=== PATIENT | female | born 1970 | race African-American/Black ===

== ENCOUNTER 2022-09-07 20:15 | Observation (INO) | payer BC, SELFPAY ==
[2022-09-07 20:40] VITALS: BP 109/72; PULSE 71; RESP 20; TEMP 37.1; O2SAT 100; BMI 34.3
--- NOTE | 2022-09-07 21:09 | CT_ITS ---
[address] [address] Patient Name: YOSI KLEIN MRN: [id number] date: 1970 Sex: F Assigned Patient Location: ED.MAIN Current Patient Location: Accession/Order Number: [id number] Exam Date: 09/07/2022 22:00 Report Date: 09/07/2022 22:56 At the request of: FEDE MARKER Procedure: CT abdomen pelvis w con EXAM: CT abdomen pelvis w con TECHNIQUE: Axial CT images were obtained of the abdomen and pelvis with intravenous contrast. Sagittal and coronal reformatted images were also obtained. Dose reduction techniques were achieved by using automated exposure control and/or adjustment of mA and/or kV according to patient size and/or use of iterative reconstruction technique. HISTORY: abd pain COMPARISON: None. FINDINGS: Lower chest: The lower lungs are clear. Liver: The liver is homogeneous with normal contours and normal size. Gallbladder: The gallbladder is unremarkable. There is no intra or extrahepatic biliary dilatation. Pancreas: The pancreas is homogeneous without evidence for mass lesion or inflammation. Spleen: The spleen is unremarkable without evidence for mass lesion. Adrenal glands: The adrenal glands are unremarkable Kidneys and bladder: The kidneys are unremarkable with no evidence for mass lesion, hydronephrosis or inflammation. The ureters demonstrate normal caliber. The urinary bladder is unremarkable. GI Tract: Stomach is unremarkable. Visualized small bowel is unremarkable without evidence for obstruction or active inflammation. Appendix is thickened with mild periappendiceal inflammation. No periappendiceal abscess.The visualized portion of the large bowel is unremarkable. Reproductive: Intrauterine device in place. Lymph nodes: No retroperitoneal or abdominal lymphadenopathy. Vascular: The aorta is not dilated. Peritoneum: No free intraperitoneal air or fluid. No acute inflammation. Abdominal wall: Unremarkable without acute abnormality. IMPRESSION: Findings suggesting acute appendicitis. No evidence for abscess. Electronically authenticated by: MALINI ANGELO Date: 09/07/2022 22:56
--- NOTE | 2022-09-07 21:09 | ED_ITS ---
HPI - Abdominal Pain General Chief Complaint: Abdominal Pain Stated Complaint: ABDOMINAL PAIN, PAINFUL TO BREATH Time Seen by Provider: 09/07/22 20:43 Source: patient Mode of arrival: walk-in Limitations: no limitations History of Present Illness HPI narrative: This 51-year-old female presents for evaluation of right upper quadrant abdominal pain with excessive bloating, belching nausea and one episode of vomiting. The patient states the pain started yesterday but became worse after having a stuffed pepper for dinner last night. She states she was unable to get comfortable all night. She thought initially that she was constipated and had to have a bowel movement. She went to the bathroom and use the bathroom but the pain did not resolve. She states she has been trying to drink clear liquids today with everything that she eats or drinks upsets her stomach. She denies any chest pain. She states the pain in her abdomen is making it hard for her to take a deep breath. She has not had any diarrhea. She denies any excessive alcohol use. She does not smoke. She takes medications for an irregular heartbeat but otherwise is healthy. She has not had a fever or cough. Related Data Home Medications Medication Instructions Recorded Confirmed cetirizine 10 mg tablet (24Hour 10 mg PO DAILY PRN allergy symptoms 09/07/22 09/07/22 Allergy) metoprolol succinate 25 mg 25 mg PO DAILY 09/07/22 09/07/22 tablet,extended release 24 hr spironolactone 100 mg tablet 100 mg PO DAILY 09/07/22 09/07/22 Allergies Allergy/AdvReac Type Severity Reaction Status Date / Time No Known Drug Allergies Allergy Verified 09/07/22 20:45 Review of Systems ROS Status of ROS 10 or more systems reviewed and unremarkable except as noted in history and below [facility] Medical History (Updated 09/08/22 @ 00:38 by Faye Asencio MD) Social History Smoking status: Never smoker Exam Narrative Exam Narrative: Constitutional: Nontoxic but uncomfortable appearing -[place] female, she cries out at times due to spasms in her abdomen, no respiratory distress Vital signs: Afebrile with a normal pulse, blood pressure is normal 109/72, she is not hypoxic with pulse ox of 100 percent on room air HEENT: Normocephalic/atraumatic, patient is nonicteric, mucous membranes are moist and pink Neck: Supple, no meningeal signs Chest: Lungs are clear with good air entry, no wheezing rhonchi or rales appreciated Abdomen: Softly distended, normal bowel sounds, tenderness in the right upper and right lower quadrants with voluntary guarding, +Rovsings sign, no pulsatile masses. Ext: non-tender, no calf swelling or tenderness noted, non-tender varicose veins noted in posterior calfs bilaterally Neuro- no focal deficits Psych- normal exam, anxious due to current condition Constitutional Vital Signs - 24 hr 09/07/22 20:40 Temperature 98.8 F Pulse Rate [Monitor] 71 Respiratory Rate 20 Blood Pressure [Left Arm] 109/72 Pulse Oximetry 100 Oxygen Delivery Method Room Air Course Vital Signs Vital signs: Vital Signs Temperature 98.8 F 09/07/22 20:40 Pulse Rate 71 09/07/22 20:40 Respiratory Rate 20 09/07/22 20:40 Blood Pressure 109/72 09/07/22 20:40 Pulse Oximetry 100 09/07/22 20:40 Oxygen Delivery Method Room Air 09/07/22 20:40 Temperature 98.8 F 09/07/22 20:40 Pulse Rate 71 09/07/22 20:40 Respiratory Rate 20 09/07/22 20:40 Blood Pressure 109/72 09/07/22 20:40 Pulse Oximetry 100 09/07/22 20:40 Oxygen Delivery Method Room Air 09/07/22 20:40 MDM - Abdominal Pain MDM Narrative Medical decision making narrative: This 51-year-old female who takes metoprolol and spironolactone allegedly for an irregular heartbeat at times presents for evaluation of abdominal pain with nausea and vomiting. The pain started last night. The patient states she could not get comfortable at all. She did not really have much of an appetite during the day but bought a slushie that she thought would settle her stomach. She states that her stomach was diffusely tender and put into the right side. She had not had a fever. She had some vomiting. She was unable to get comfortable. She did admit to passing a lot of gas and a lot of belching. She has not had a fever. She denies any chest pain or shortness of breath. Due to her history of a cardiac arrhythmia I ordered an EKG that was a sinus rhythm at 59 bpm with no acute changes. An IV was placed and she was medicated with IV fluids, Toradol and Zofran. Her pain went from a 10 to a 5 with these medications. She had declined strong pain medications initially because she was hoping to be able to drive home. Routine labs are ordered and are reviewed. She has normal white count and hemoglobin. test was negative. Electrolytes, LFTs and lipase are all normal. CT scan abdomen and pelvis with contrast was ordered and shows Thickened appendix with periappendiceal inflammation consistent with acute appendicitis. It shows a normal gallbladder. The patient was informed of the results of the CT scan. She is in agreement with admission to this facility. The case was discussed with general surgery on-call, Dr. Dave and she is accepted for admission to med/surg. He requested IV Unasyn q 6 hours and the first dose was given in the ER. She was also re-medicated with 4mg IV morphine, NPO status was implemented and she was given maintenance IV fluids. Lab Data Labs: Lab Results 09/07/22 Range/Units 21:13 WBC 9.2 (4.0-11.0) 10^3/uL RBC 3.96 L (4.20-5.40) 10^6/uL Hgb 12.1 (12.0-16.0) g/dL Hct 35.7 L (36.0-48.0) % MCV 90.2 (81.0-99.0) fL MCH 30.6 (26.7-34.0) pg MCHC 33.9 (29.9-35.2) g/dL RDW 11.8 (11.0-15.0) % Plt Count 266 (150-450) 10^3/uL MPV 10.5 (9.5-13.5) fL Neut % (Auto) 56.9 (43.0-75.0) % Lymph % (Auto) 32.2 (20.5-60.0) % [place] % (Auto) 9.2 (1.7-12.0) % Eos % (Auto) 1.3 (0.9-7.0) % Baso % (Auto) 0.2 (0.2-2.0) % Neut # (Auto) 5.2 (1.4-6.5) 10^3/uL Lymph # (Auto) 3.0 (1.2-3.8) 10^3/uL [place] # (Auto) 0.8 (0.3-0.8) 10^3/uL Eos # (Auto) 0.1 (0.0-0.7) 10^3/uL Baso # (Auto) 0.0 (0.0-0.1) 10^3/uL Abs Immat Gran (auto) 0.02 (0.00-0.03) 10^3/uL Imm/Tot Granulo (auto) 0.2 (0.0-0.5) % Sodium 132 L (136-145) mmol/L Potassium 3.4 L (3.5-5.1) mmol/L Chloride 100 (98-107) mmol/L Carbon Dioxide 25.9 (21.0-32.0) mmol/L Anion Gap 9.5 BUN 5.0 L (7.0-18.0) mg/dL Creatinine 0.83 (0.55-1.02) mg/dL Est GFR ( Amer) >60 (>=60) Est GFR (Non-Af Amer) >60 (>=60) BUN/Creatinine Ratio 6.0 Glucose 94 (74-106) mg/dL Calcium 8.7 (8.5-10.1) mg/dL Total Bilirubin 0.8 (0.2-1.0) mg/dL AST 19 (15-37) U/L ALT 25 (14-59) U/L Alkaline Phosphatase 101 (46-116) U/L Total Protein 7.7 (6.4-8.2) g/dL Albumin 3.6 (3.4-5.0) g/dL Globulin 4.1 g/dL Albumin/Globulin Ratio 0.9 Lipase 70.0 L (73.0-393.0) U/L Discharge Plan Discharge Chief Complaint: Abdominal Pain Clinical Impression: Acute appendicitis Patient Disposition: Admitted as Observation Time of Disposition Decision: 00:38 Condition: Good Prescriptions / Home Meds: No Action metoprolol succinate 25 mg tablet extended release 24 hr 25 mg PO DAILY spironolactone 100 mg tablet 100 mg PO DAILY cetirizine [24Hour Allergy] 10 mg tablet 10 mg PO DAILY PRN (Reason: allergy symptoms) Referrals: Physician,Non-Staff, MD [Primary Care Provider] - 1 week
--- NOTE | 2022-09-07 21:12 | ECG_ITS ---
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
[2022-09-07 21:25] VITALS: PULSE 63; RESP 13
[2022-09-07 21:27] VITALS: PULSE 59
[2022-09-07 21:27] LABS: Basophils Percent Auto 0.2 % (0.2-2.0); Eosinophils Absolute Auto 0.1 10^3/uL (0.0-0.7); Eosinophils Percent Auto 1.3 % (0.9-7.0); Hematocrit 35.7 % (36.0-48.0); Hemoglobin 12.1 g/dL (12.0-16.0); Immature Granulocytes Abs Auto 0.02 10^3/uL (0.00-0.03); Immature Granulocytes Pct Auto 0.2 % (0.0-0.5); Lymphocytes Percent Auto 32.2 % (20.5-60.0); Mean Corpuscular HGB Conc 33.9 g/dL (29.9-35.2); Mean Corpuscular Hemoglobin 30.6 pg (26.7-34.0); Mean Corpuscular Volume 90.2 fL (81.0-99.0); Mean Platelet Volume 10.5 fL (9.5-13.5); Monocytes Absolute Auto 0.8 10^3/uL (0.3-0.8); Monocytes Percent Auto 9.2 % (1.7-12.0); Neutrophils Absolute Auto 5.2 10^3/uL (1.4-6.5); Neutrophils Percent Auto 56.9 % (43.0-75.0); Platelet Count 266 10^3/uL (150-450); Red Blood Count 3.96 10^6/uL (4.20-5.40); Red Cell Distribution Width 11.8 % (11.0-15.0); White Blood Count 9.2 10^3/uL (4.0-11.0)
[2022-09-07] MEDS: 0.9 % SODIUM CHLORIDE 1,000 ML 1000 ML IV (21:39)
[2022-09-07] MEDS: FAMOTIDINE/PF 20 MG/2 ML VIAL IV (21:39)
[2022-09-07] MEDS: KETOROLAC TROMETHAMINE 30 MG/ML VIAL IVP (21:39)
[2022-09-07] MEDS: ONDANSETRON PF 4 MG/2 ML VIAL IV (21:39)
[2022-09-07 21:42] LABS: Alanine Aminotransferase 25 U/L (14-59); Albumin Globulin Ratio 0.9; Albumin Level 3.6 g/dL (3.4-5.0); Alkaline Phosphatase 101 U/L (46-116); Anion Gap 9.5; Aspartate Amino Transferase 19 U/L (15-37); Bilirubin Total 0.8 mg/dL (0.2-1.0); Calcium 8.7 mg/dL (8.5-10.1); Carbon Dioxide 25.9 mmol/L (21.0-32.0); Chloride 100 mmol/L (98-107); Estimated GFR (African America >60 (>=60); Estimated GFR (Non-African Ame >60 (>=60); Globulin 4.1 g/dL; Glucose 94 mg/dL (74-106); Potassium 3.4 mmol/L (3.5-5.1); Sodium 132 mmol/L (136-145); Total Protein 7.7 g/dL (6.4-8.2)
[2022-09-07] MEDS: MORPHINE SULFATE 4 MG/ML VIAL IV (23:53)
[2022-09-07] MEDS: AMPICILLIN SODIUM/SULBACTAM NA 3 GM in 0.9 % SODIUM CHLORIDE 100 ML IV (23:53)
[2022-09-08] VITALS (63 sets, daily range): BP systolic 98–126; BP diastolic 61–83; PULSE 52–92; RESP 13–18; TEMP 36.1–36.7; O2SAT 94–100; BMI 37.5
[2022-09-08] MEDS: 0.9 % SODIUM CHLORIDE 1,000 ML 125 ML IV (01:30)
[2022-09-08 02:40] LABS: HCG Qualitative Urine* NEGATIVE (NEGATIVE)
[2022-09-08 05:21] LABS: Basophils Percent Auto 0.2 % (0.2-2.0); Eosinophils Absolute Auto 0.1 10^3/uL (0.0-0.7); Eosinophils Percent Auto 2.3 % (0.9-7.0); Hematocrit 29.4 % (36.0-48.0); Hemoglobin 10.1 g/dL (12.0-16.0); Immature Granulocytes Abs Auto 0.01 10^3/uL (0.00-0.03); Immature Granulocytes Pct Auto 0.2 % (0.0-0.5); Lymphocytes Absolute Auto 2.9 10^3/uL (1.2-3.8); Lymphocytes Percent Auto 48.8 % (20.5-60.0); Mean Corpuscular HGB Conc 34.4 g/dL (29.9-35.2); Mean Corpuscular Hemoglobin 30.6 pg (26.7-34.0); Mean Corpuscular Volume 89.1 fL (81.0-99.0); Mean Platelet Volume 10.9 fL (9.5-13.5); Monocytes Absolute Auto 0.6 10^3/uL (0.3-0.8); Neutrophils Absolute Auto 2.3 10^3/uL (1.4-6.5); Neutrophils Percent Auto 38.5 % (43.0-75.0); Platelet Count 211 10^3/uL (150-450); Red Cell Distribution Width 11.9 % (11.0-15.0)
--- NOTE | 2022-09-08 05:25 | P.HP_ITS ---
H&P: HPI History of Present Illness Chief complaint: SOB, PAINFUL TO BREATH Narrative: 51-year-old black female presented to the Emergency Department last evening with complaints of nausea and vomiting and right-sided abdominal pain worsening during the day. She denies any fevers or chills. She had a CAT scan of the abdomen and pelvis which showed periappendiceal inflammation compatible with probable appendicitis. She had been feeling well until the day before yesterday. Denies any melena hematochezia or any family history of colon cancer or inflammatory bowel disease. She has a history of an irregular heartbeat for which she sees the [facility] and takes metoprolol regularly. She rates her pain as a five out of ten currently. White blood count was normal. She works for [employer]. She is and has childdren out of state. Review of Systems ROS Status of ROS 10 or more systems reviewed and unremarkable except as noted in history and below [facility] Medical History Social History Smoking status: Never smoker Gender Identity: female Meds Home Medications and Allergies Home Medications Medication Instructions Recorded Confirmed Type cetirizine 10 mg tablet (24Hour 10 mg PO DAILY PRN allergy symptoms 09/07/22 09/08/22 History Allergy) metoprolol succinate 25 mg 25 mg PO DAILY 09/07/22 09/08/22 History tablet,extended release 24 hr spironolactone 100 mg tablet 100 mg PO DAILY 09/07/22 09/08/22 History Allergies Allergy/AdvReac Type Severity Reaction Status Date / Time No Known Drug Allergies Allergy Verified 09/07/22 20:45 Exam Constitutional Vital Signs - 24 hr 09/07/22 20:40 09/07/22 21:25 09/08/22 00:02 Temperature 98.8 F Pulse Rate 63 Pulse Rate [Monitor] 71 Respiratory Rate 20 13 Blood Pressure Blood Pressure [Left Arm] 109/72 Pulse Oximetry 100 99 Oxygen Delivery Method Room Air 09/08/22 00:04 09/08/22 00:05 09/08/22 02:24 Temperature Pulse Rate Pulse Rate [Monitor] Respiratory Rate 14 Blood Pressure 119/65 Blood Pressure [Left Arm] Pulse Oximetry 99 Oxygen Delivery Method 09/08/22 02:24 09/08/22 02:24 Temperature 97.6 F Pulse Rate 53 L Pulse Rate [Monitor] 53 L Respiratory Rate 16 16 Blood Pressure Blood Pressure [Left Arm] 107/64 Pulse Oximetry 95 95 Oxygen Delivery Method Room Air Room Air Documenting provider has reviewed patient's vital signs: yes Common normals: no apparent distress, average body habitus, oriented x3, healthy appearing, alert and well nourished General appearance: cooperative and well developed Nutritional appearance: obese Orientation/consciousness: Yes awake, Yes oriented to person, Yes oriented to place and Yes oriented to time HENMT Common normals: normocephalic Eye Common normals: PERRL and EOMs intact bilaterally General eye: normal appearance of both eyes Respiratory Common normals: clear to auscultation bilaterally Cardio Rate: bradycardic GI Common normals: Normal to inspection, nondistended, normoactive bowel sounds present and soft to palpation Palpation: tender Details: RLQ and McBurney's point and guarding in the RLQ Extremity Common normals: normal to inspection Neuro Common normals: oriented x3 and moves all extremities Psych Common normals: mental status grossly normal Results Labs Labs: Short CBC 09/07/22 Range/Units 21:13 WBC 9.2 (4.0-11.0) 10^3/uL Hgb 12.1 (12.0-16.0) g/dL Hct 35.7 L (36.0-48.0) % Plt Count 266 (150-450) 10^3/uL BMP 09/07/22 21:13 Sodium 132 L Potassium 3.4 L Chloride 100 Carbon Dioxide 25.9 BUN 5.0 L Creatinine 0.83 Glucose 94 Calcium 8.7 Liver Function 09/07/22 Range/Units 21:13 Total Bilirubin 0.8 (0.2-1.0) mg/dL AST 19 (15-37) U/L ALT 25 (14-59) U/L Alkaline Phosphatase 101 (46-116) U/L Albumin 3.6 (3.4-5.0) g/dL Assessment and Plan Assessment and Plan (1) Acute appendicitis: Qualifiers: Acute appendicitis type: with localized peritonitis (2) Palpitations: (3) Thyroid nodule: Plan laparoscopic appendectomy with possible open appendectomy. Risks benefits and alternatives to surgery may include infection, bleeding, postoperative abscess weeks later, blood clots to like to lungs, pneumonia, heart attack, stroke, and/or . Patient understands all the above and wishes to proceed. This is an emergency.
[2022-09-08] MEDS: AMPICILLIN SODIUM/SULBACTAM NA 3 GM in 0.9 % SODIUM CHLORIDE 100 ML IV (06:40)
--- NOTE | 2022-09-08 06:49 | W.SUR.HO ---
Active Medications Generic Name Dose Route Start Last Admin Trade Name Freq PRN Reason Stop Dose Admin Cetirizine HCl 10 mg 09/08/22 06:20 Cetirizine Hcl 10 Mg Tablet PO DAILY PRN allergy symptoms Sodium Chloride 1,000 mls @ 125 mls/hr 09/08/22 00:36 09/08/22 01:30 Sodium Chloride 0.9% 1,000 Ml IV 09/08/22 08:35 125 mls/hr .Q8H ONE Administration Metoprolol Succinate 25 mg 09/08/22 09:00 Metoprolol Succinate 25 Mg Tab.Er.24h PO DAILY ANASTASIA Spironolactone 100 mg 09/08/22 09:00 Spironolactone 100 Mg Tablet PO DAILY ANASTASIA Neuro Patient orientation (short person,place,time,situation list) [place] coma scale total score 15 Ryan coma scale total score 15 Ryan coma scale total score 15 Respiratory Pulse Oximetry 95 Pulse Oximetry 95 Pulse Oximetry 99 Pulse Oximetry 99 Pulse Oximetry 100 Oxygen Delivery Method Room Air Oxygen Delivery Method Room Air Oxygen Delivery Method Room Air Bowels Date of Last Bowel Movement 09/07/22 Date of Last Bowel Movement 09/07/22 Renal Bladder Pattern Continent Bladder Pattern Continent Operation Date: 09/08/22 05:45 Actual Procedures p Appendectomy Laparoscopic(Right) - Sridhar Dave MD Patient prepped for surgery, bedside report given to Jeanne Rivas RN. Patient transferred to PACU via bed. Transferred with med reconciliation. Mignon Mccormick RN
--- NOTE | 2022-09-08 07:04 | P.GSPRC_ITS ---
Date of procedure: 09/08/22 Indications for Procedure: acute appendicitis Pre-op diagnosis: acute appendicitis Post-op diagnosis: same Procedure: laparoscopic appendectomy Findings: acute appendicitis Anesthesia: AMRIT Surgeon: Sridhar Dave Procedure Summary: 51-year-old female was taken to the operating suite placed in the supine position and given a general anesthetic by the marine steam fitter. Timeout was taken. Preoperative antibiotics were given. SCDs were placed on bilateral lower extremities. The abdomen was prepped and draped usual sterile fashion. A subumbilical incision was made down to the anterior rectus fascia which is opened on the midline and traction sutures of 0 Vicryl were placed in the peritoneal cavity was entered. A Teresa port was then placed into the abdomen which was insufflated 15 mmHg pressure. Next a 12 mm port was placed in the right upper quadrant and one in the left lower quadrant both under direct visualization into the abdominal cavity. Patient was then placed in Trendelenburg position with left side down and a lap scopic Eri clamp was used to grasp the appendix in the right lower quadrant only on traction and then a window was made in the mesoappendix with curved dissector. Endo RENNY stapler was then placed through the right upper quadrant por t and fired across the base the appendix with hemostasis being maintained and then another firing across the mesoappendix was performed and hemostasis was maintained. The appendix was then placed into an Endobag through the umbilical port and brought out intact. The Teresa port was then replaced and hemostasis was checked for and maintained. No irrigation was carried out. There was no purulent drainage noted. All ports were then removed with port sites dry and then the anterior rectus fascia was closed with 0 Vicryl suture in interrupted fashion. Skin incisions were then closed with 4 Monocryl suture in running subicular fashion and Steri-Strips were applied. Half percent Marcaine 20 mL used anesthetize subcutaneous and its tissues. Sponge and stomach counts were correct. Case was clean contaminated emergency. Blood loss none Maxillofacial Surgeon: SHANTANU Mcnair Estimated blood loss (mL): 0 Specimens: appendix Complications: No Condition: stable Disposition: PACU
[2022-09-08] MEDS: LACTATED RINGER'S SOLUTION 1,000 ML 50 ML IV (07:10)
[2022-09-08] MEDS: BUPIVACAINE HCL 0.5% PF 50 MG/10 ML VIAL 20 ML INJ (07:14)
--- NOTE | 2022-09-08 07:45 | PC.NURSE ---
DRESSINGS X3 CONTINUE CLEAN DRY AND INTACT. ICE APPLIED TO THE PATIENTS ABDOMEN
--- NOTE | 2022-09-08 08:06 | PC.NURSE ---
Dressings x3 were clean dry and intact at handoff on MEDR. ICE pack continued in place.
[2022-09-08] MEDS: SPIRONOLACTONE 100 MG TABLET PO (09:02)
[2022-09-08] MEDS: METOPROLOL SUCCINATE 25 MG TAB.ER.24H PO (09:02)
[2022-09-08] MEDS: IBUPROFEN 400 MG TABLET 800 MG PO ×2 (09:03→16:28)
[2022-09-09 04:55] VITALS: BP 110/76; PULSE 63; RESP 18; TEMP 36.6; O2SAT 96
[2022-09-09 04:56] VITALS: O2SAT 95
[2022-09-09] MEDS: LACTATED RINGER'S SOLUTION 1,000 ML 50 ML IV (06:04)
[2022-09-09 11:57] VITALS: O2SAT 98
--- NOTE | 2022-09-11 14:52 | CM.DCFOLLOWU ---
Person spoke with:patient How are you feeling? better How is your pain? not much pain, up and walking more Did you understand your discharge instructions? yes Do you have any questions about your discharge instructions? no Were you given any prescriptions at discharge? yes Were you able to get your prescriptions filled? yes Do you understand how to take your medications as ordered? yes Do you have any questions about your follow up appointment and do you plan to keep your follow up appointment? no questions, called Dr. Dave's office but they were closed Is there anything else that you would like to discuss? no Questions/Comments/Concerns/Other:
--- NOTE | 2022-09-27 08:52 | PM.DS1 ---
DS: Providers Provider Date of admission: 09/10/2022 Primary care physician: Dr. Dave Admitting clinician: Sridhar Dave Attending physician on discharge: Sridhar Dave Discharging clinician: Sridhar Dave Anticipated date of discharge: 09/10/22 DS: Diagnosis Discharge Diagnosis (1) Acute appendicitis: Qualifiers: Acute appendicitis type: with localized peritonitis (2) Palpitations: (3) Thyroid nodule: DS: Summary Hospital Course Hospital Course: patient admitted for lap appendectomy which was uneventful and discharged the following day. Tolerating diet and ambulating. Patient to follow-up in office in one to two weeks. Status at Discharge Functional status at discharge: independent ambulation Overall status at discharge: patient is progressing back to baseline Time Spent with Patient Time attestation: Total time spent providing and/or coordinating discharge services: Time spent: less than 30 minutes Exam Constitutional Vital Signs, click to edit/add: Last Vital Signs Temp 98 F 09/09/22 04:55 Pulse 63 09/09/22 04:55 Resp 18 09/09/22 04:55 BP 110/76 09/09/22 04:55 Pulse Ox 98 09/09/22 11:57 O2 Del Method Room Air 09/09/22 11:57 Discharge Plan Discharge Disposition: Home, Self-Care Condition: Good Assessment: good Plan of Treatment: D//C home and f/u with me in 2 weeks. Discharge Medications: New oxycodone-acetaminophen 5-325 mg Tablet 1 tab PO Q6H PRN (Reason: pain (scale score 1-3)) Qty: 12 0RF ibuprofen 400 mg Tablet 800 mg PO Q8H Qty: 20 0RF Continued metoprolol succinate 25 mg tablet extended release 24 hr 25 mg PO DAILY spironolactone 100 mg tablet 100 mg PO DAILY cetirizine [24Hour Allergy] 10 mg tablet 10 mg PO DAILY PRN (Reason: allergy symptoms) Activity: return to work once cleared by your PCP/specialist Activity Detail: no lifting greater than 5# x 1 month Diet: advance to your usual diet Patient Instructions: Ibuprofen (By mouth), Oxycodone/Acetaminophen (By mouth), Laparoscopic Appendectomy (DC), Appendicitis (GEN) Forms: Portal Instructions Follow Up Appointments: please call Dr. Dave office to make a follow up for 2 weeks [phone] Discharge Date/Time: 09/09/22 12:10
== END 2022-09-09 12:10 | disposition home or self-care (01) ==
LOC: ER 09-08 00:38 → MS 09-08 02:16
PROVIDERS: Admitting Provider Surgery; Emergency Provider Emergency Medicine; Visit Provider Surgery
PROC: (CPT 44970; principal; 2022-09-08 05:45)
DX: K35.80 Unspecified acute appendicitis (principal); R00.2 Palpitations; E04.1 Nontoxic single thyroid nodule; Z79.899 Other long term (current) drug therapy
CPT/HCPCS: 44970; 36415; 74177; 80053; 83690; 84703; 85025; 88304; 93005; 94761; 96361; 96365; 96375; 99285; G0378; J2704; Q9967